=== PATIENT | female | born 1960 ===

== ENCOUNTER 2019-06-18 14:39 | Emergency (ER) | payer OTHER ==
[~2019-06-18] VITALS: Ht 160 cm; Wt 77.3 kg
[2019-06-18] VITALS (15 sets, daily range): BP systolic 87–102; BP diastolic 41–73
[2019-06-18] MEDS ORDERED: FURO40I IVP (15:15)
[2019-06-18] MEDS ORDERED: METR250 PO (15:15)
[2019-06-18] MEDS ORDERED: EPOE10I SQ (15:15)
[2019-06-18] MEDS ORDERED: PANT40VI14 IVP (15:15)
[2019-06-18] MEDS ORDERED: MULT-1192 PO (15:15)
[2019-06-18] MEDS ORDERED: POTA99TA15 PO (15:15)
[2019-06-18] MEDS ORDERED: CEFE2I IV (15:15)
[2019-06-18] MEDS ORDERED: THIA1002I IVP (15:15)
[2019-06-18 15:18] LABS: GLUCOSE,POINT OF CARE 262 MG/DL (70-110)
[2019-06-18 16:04] LABS: MEAN CORPUSCULAR VOLUME 100 fL (80-100); RED BLOOD CELL COUNT(AUTO) 2.09 MIL/uL (4.00-5.20); RED CELL DISTRIBUTION WIDTH 22.7 % (11.5-14.5)
[2019-06-18 16:11] LABS: ANION GAP 14 mmol/L (8-16); CALCIUM, TOTAL 8.6 mg/dL (8.8-10.5); CARBON DIOXIDE 19 mmol/L (22-29); CHLORIDE 101 mmol/L (98-107); CREATININE 2.24 mg/dL (0.60-1.30); GLOMERULAR FILTR. RATE CALC 23 mL/min (>60); GLUCOSE,RANDOM 284 mg/dL (70-110); SODIUM SERUM 134 mmol/L (136-145); UREA NITROGEN, BLOOD 70 mg/dL (7-18)
[2019-06-18 16:12] LABS: HEMOGLOBIN 6.5 g/dL (12.0-16.0)
[2019-06-18 16:13] LABS: HEMATOCRIT 20.9 % (36-46); INR 1.3 (0.9-1.1); PROTHROMBIN TIME 13.9 SEC (9.4-11.6)
[2019-06-18] MEDS ORDERED: KDUR20 PO (16:13)
[2019-06-18] MEDS ORDERED: SODIUM CHLORIDE 0.9% 1,000 ML IV ONE (16:15)
[2019-06-18 16:18] LABS: ALANINE AMINOTRANSFERASE 30 U/L (12-78); ALKALINE PHOSPHATASE 495 U/L (46-116); ASPARTATE AMINOTRANSFERASE 78 U/L (15-37); BILIRUBIN,TOTAL 3.3 mg/dL (0.1-1.0); CREATINE KINASE, TOTAL ONLY 13 U/L (26-192); TOTAL PROTEIN, SERUM 4.9 g/dL (6.4-8.2)
[2019-06-18 16:30] LABS: PLATELET COUNT (AUTO) 18 K/uL (150-450)
[2019-06-18 16:57] LABS: APPEARANCE,URINE TURBID (CLEAR); GLUCOSE, URINE (UA) NEGATIVE (NEGATIVE); KETONES,URINE TRACE mg/dL (NEGATIVE); LEUKOCYTE ESTERASE ,URINE MODERATE (NEGATIVE); NITRATE,URINE POSITIVE (NEGATIVE); OCCULT BLOOD,URINE LARGE (NEGATIVE); PROTEIN,URINE POS 1+ (NEGATIVE)
[2019-06-18 17:01] LABS: BILIRUBIN,URINE PRELIM. POSITIVE (NEGATIVE)
[2019-06-18 17:06] LABS: BACTERIA,URINE Many /HPF (None Seen)
[2019-06-18 17:07] LABS: AMORPHOUS SEDIMENT,UR Moderate /LPF (None Seen); CALCIUM OXALATE CRYSTALS,UR Few /LPF (None Seen); SQUAMOUS EPITHELIAL CELL,UR Few /LPF (None Seen)
[2019-06-18 17:08] LABS: BAND NEUTROPHILS % (MANUAL) 25 % (0-5); CORRECTED WHITE BLOOD COUNT 18.7 K/uL (4.5-11.0); LYMPHOCYTES % (MANUAL) 9 % (22-44); MONOCYTES % (MANUAL) 4 % (2-9); MYELOCYTES % 4 % (0-0); SEGMENTED NEUTROPHILS % 58 % (40-70)
[2019-06-18 17:10] LABS: LACTIC ACID 2.9 mmol/L (0.4-2.0)
[2019-06-18] MEDS ORDERED: CefTRIAXone 1 GM/DEXTROSE 50 ML IV ONE (18:15)
[2019-06-19 00:05] VITALS: BP 96/42
[2019-06-19 00:55] LABS: HEMOGLOBIN 7.7 g/dL (12.0-16.0); MEAN CORPUSCULAR HEMOGLOBIN 30.6 pg (26.0-34.0); RED BLOOD CELL COUNT(AUTO) 2.53 MIL/uL (4.00-5.20)
[2019-06-19 01:00] LABS: HEMATOCRIT 24.7 % (36-46); MEAN CORPUSCULAR HGB CONC 31.3 G/dL (31.0-37.0); MEAN CORPUSCULAR VOLUME 98 fL (80-100); RED CELL DISTRIBUTION WIDTH 20.8 % (11.5-14.5)
[2019-06-19 01:09] LABS: PLATELET COUNT (AUTO) 32 K/uL (150-450)
[2019-06-19 01:13] LABS: BAND NEUTROPHILS % (MANUAL) 19 % (0-5); LYMPHOCYTES % (MANUAL) 8 % (22-44); MONOCYTES % (MANUAL) 4 % (2-9); MYELOCYTES % 1 % (0-0); SEGMENTED NEUTROPHILS % 68 % (40-70)
[2019-06-19 02:01] VITALS: BP 96/46
== END 2019-06-19 02:02 | disposition home or self-care (01) ==
LOC: EMS 14:41
DX: D50.0 Iron deficiency anemia secondary to blood loss (chronic) (principal); D69.6 Thrombocytopenia, unspecified; C64.9 Malignant neoplasm of unspecified kidney, except renal pelvis; C78.7 Secondary malignant neoplasm of liver and intrahepatic bile duct; R60.1 Generalized edema; N19 Unspecified kidney failure; K72.90 Hepatic failure, unspecified without coma; N39.0 Urinary tract infection, site not specified; R41.82 Altered mental status, unspecified; E11.9 Type 2 diabetes mellitus without complications; Z88.0 Allergy status to penicillin; Z79.899 Other long term (current) drug therapy
CPT/HCPCS: 36415; 36430; 71045; 80053; 81001; 82550; 82962; 83605; 84484; 85025; 85610; 85730; 86850; 86900; 86901; 86920; 87077; 87086; 87186; 93005; 96361; 96365; 99291; J0696; J7030; P9016; P9035